=== PATIENT | male | born 1955 | race Caucasian/White ===

== ENCOUNTER 2020-07-19 06:42 | Day surgery (SDC) | payer BC ==
[2020-07-19] MEDS ORDERED: Lactated Ringers 1,000 ML IV SCH (07:00)
[2020-07-19] MEDS ORDERED: Propofol 200 MG/20 ML SDV ONE (07:39)
[2020-07-19] MEDS ORDERED: fentaNYL 100 MCG/2 ML SDV ONE (07:39)
[2020-07-19 08:39] VITALS: BP 142/92; PULSE 78
--- NOTE | 2020-07-19 11:55 | OR ---
PREOPERATIVE DIAGNOSES: 1. Screening colonoscopy. 2. Family history of colon cancer. POSTOPERATIVE DIAGNOSES: 1. Screening colonoscopy. 2. Family history of colon cancer. PROCEDURE PERFORMED: Total flexible colonoscopy with biopsies. ANESTHESIA: MAC anesthesia. COMPLICATIONS: None apparent. BLOOD LOSS: None. FINDINGS: 1. Cecal polyp, 2 mm, cold forceps. 2. Sigmoid diverticulosis. Start time: 7:44. Cecum: 07:48. Stop time: 08:02. BOWEL PREP: [place] class 3. INDICATIONS FOR PROCEDURE: Mr. Mcqueen is a 64-year-old male who is here for screening colonoscopy. His last colonoscopy was 5 years ago. He gets them every 5 years due to family history of colon cancer in his brother. He denies any bloody or dark black stools. PROCEDURE IN DETAIL: After informed consent was obtained, patient was brought to the procedure room, placed in left lateral decubitus position. MAC anesthesia was induced per anesthesia colleagues. The colonoscope was introduced into the rectum and advanced all the way to the cecum. The appendiceal orifice was photographed. Terminal ileum was intubated, photographed. The colonoscope was then slowly withdrawn. No pathology was seen except for what is mentioned in the above findings section. A retroflexed view was obtained and the colonoscope was removed. The patient was awoken from MAC anesthesia by Anesthesia colleagues without incident. PATHOLOGY: Colon, cecal polyp, polypectomy Hyperplastic polyp. Recommend repeat screening colonoscopy in 5 years. RKM: 07/19/2020 08:07:48 MODL: 07/19/2020 09:46:58 /[id number]
--- NOTE | 2020-07-25 08:42 | LETTER ---
07/24/2020 Mateo Mcqueen [address] [place] [id number] RE: MATEO MCQUEEN : 1955 Dear Mr. Mcqueen: I write to inform you of the pathology results of your recent colonoscopy. You had a polyp called a hyperplastic polyp. This is a benign polyp, which is not considered precancerous. Due to your family history of colon cancer, you will need a repeat screening colonoscopy in 5 years. Warmest regards,
== END 2020-07-19 09:10 | disposition home or self-care (01) ==
LOC: VM.SDS 06:42
PROVIDERS: ATTEND Student in an Organized Health Care Education/Training Program
DX: Z12.11 Encounter for screening for malignant neoplasm of colon (principal); K63.5 Polyp of colon; K57.30 Diverticulosis of large intestine without perforation or abscess without bleeding; I10 Essential (primary) hypertension; E78.00 Pure hypercholesterolemia, unspecified; E11.9 Type 2 diabetes mellitus without complications; Z80.0 Family history of malignant neoplasm of digestive organs; Z79.84 Long term (current) use of oral hypoglycemic drugs; Z79.899 Other long term (current) drug therapy; Z79.82 Long term (current) use of aspirin; Z98.890 Other specified postprocedural states
CPT/HCPCS: 00812; 82962; J2704; J3010; J7120